=== PATIENT | male | born 1990 | race Two or more races ===

== ENCOUNTER 2022-12-26 00:53 | Emergency (ER) | payer OTHER ==
[~2022-12-26] VITALS: Ht 180.3 cm; Wt 98.0 kg
[2022-12-26] MEDS ORDERED: PYRIDIUM DS200 MG PO (06:46)
[2022-12-26] MEDS ORDERED: CEPHALEXIN500 MG PO (06:46)
== END 2022-12-26 06:53 ==
LOC: ER 00:53
DX: R30.0 Dysuria (principal); Z88.8 Allergy status to other drugs, medicaments and biological substances

== ENCOUNTER → 2024-05-18 | Emergency (ER) | payer OTHER ==
[~2024-05-18] VITALS: Ht 180.3 cm; Wt 90.7 kg
[~2024-05-18] MED LIST: CEPHALEXIN500 MG PO; PYRIDIUM DS200 MG PO
== END | disposition left against medical advice (07) ==
LOC: ER 18:19
DX: Z53.21 Procedure and treatment not carried out due to patient leaving prior to being seen by health care provider (principal)